=== PATIENT | male | born 1985 | race Caucasian/White ===

== ENCOUNTER 2016-08-19 05:39 | Emergency (ER) | payer OTHER ==
[~2016-08-19] VITALS: Ht 185.4 cm; Wt 106.6 kg
[~2016-08-19 05:39] MED LIST: ATIVAN1 MG PO; DESYREL50 MG PO; LAMICTAL200 MG PO; PROZAC20 MG PO
[2016-08-19 05:41] VITALS: BP 117/78
--- NOTE | 2016-08-19 05:46 | NUR ---
TO ER BED 4
--- NOTE | 2016-08-19 05:47 | NUR ---
PT C/O RT 5TH DIGIT LACERATION WHILE MOVING PALLET AT WORK 0525. PT C/O VOMITING ONCE. MEDICAL HX PTSD. PT TAKES LAMICTAL, TRAZODONE, LORAZEPAM, AND FLUOXITINE AT HOME. DENIES N/D; SKIN IS PINK/WARM/DRY; AAOX4 WITH EVEN AND STEADY GAIT; LUNGS CLEAR BL; HR EVEN AND REGULAR; PT DENIES ANY FEVER, CP, SOB, OR COUGH AT THIS TIME; PATIENT STATES PAIN OF 7/10 AT THIS TIME; VSS; PATIENT POSITIONED FOR COMFORT; HOB ELEVATED; BEDRAILS UP X2; BED DOWN. ER MD MADE AWARE OF PT STATUS.
[2016-08-19 06:00] VITALS: BP 117/78
== END 2016-08-19 06:00 | disposition home or self-care (01) ==
LOC: MED 05:39
DX: S61.216A Laceration without foreign body of right little finger without damage to nail, initial encounter (principal); K21.9 Gastro-esophageal reflux disease without esophagitis; W45.8XXA Other foreign body or object entering through skin, initial encounter; Y93.89 Activity, other specified; Y92.89 Other specified places as the place of occurrence of the external cause; Y99.8 Other external cause status